=== PATIENT | female | born 1950 | race Caucasian/White ===

== ENCOUNTER 2016-09-18 12:14 | Emergency (ER) | payer BC ==
[~2016-09-18] VITALS: Ht 152.4 cm; Wt 76.0 kg
[~2016-09-18 12:14] MED LIST: INDO50CA PO; ROBA500T PO
[2016-09-18 12:15] VITALS: BP 150/79; PULSE 54; RESP 20; TEMP 97.8; O2SAT 98
[2016-09-18] MEDS ORDERED: TETANUS/DIPHTHERIA TOXOID ADULT 0.5 ML VIAL IM ONE (12:30)
[2016-09-18] MEDS ORDERED: LIDOCAINE HCL 1% 50 ML VIAL INFIL ONE (12:30)
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
--- NOTE | 2016-09-18 13:23 | RADRPT ---
EXAM DATE/TIME: 09/18/2016 12:39 [facility] COMPARISON: No previous studies available for comparison. INDICATIONS : Right hand 4th finger pain, fell MEDICAL HISTORY : None. SURGICAL HISTORY : None. ENCOUNTER: Initial ACUITY: 1 day PAIN SCORE: 10/10 LOCATION: Right Hand FINDINGS: There is no evidence of fracture or dislocation. There are arthritic changes most conspicuously invol ving the third and fifth finger DIP joints. Mineralization is satisfactory. CONCLUSION: No acute bony injury David Gresham MD on September 18, 2016 at 13:20 Board Certified Radiologist. This report was verified electronically.
== END 2016-09-18 13:47 | disposition home or self-care (01) ==
LOC: NEPK 12:14
DX: S61.214A Laceration without foreign body of right ring finger without damage to nail, initial encounter (principal); W23.0XXA Caught, crushed, jammed, or pinched between moving objects, initial encounter; Y93.H2 Activity, gardening and landscaping; Y92.007 Garden or yard of unspecified non-institutional (private) residence as the place of occurrence of the external cause; Z23 Encounter for immunization
CPT/HCPCS: 12002; 73130; 90471; 90714

== ENCOUNTER 2016-09-30 18:45 | Emergency (ER) | payer BC ==
[~2016-09-30] VITALS: Ht 152.4 cm; Wt 70.0 kg
[~2016-09-30 18:45] MED LIST changes: -ROBA500T PO
[2016-09-30 18:46] VITALS: BP 142/77; PULSE 56; RESP 16; TEMP 98.2; O2SAT 98
--- NOTE | 2016-09-30 19:33 | PD ---
HPI Chief Complaint: Wound/Suture/Staple Re-Check Time Seen by Provider: 19:26 Travel History International Travel<30 days: No Contact w/Intl Traveler<30days: No Traveled to known affect area: No History of Present Illness HPI 65-year-old female presents to emergency department for suture removal. The patient was injured on the of last month. Patient had a crush injury to her right ring finger. She had sutures placed. She has no complications. She denies any fever chills. No redness or discharge. PFSH Past Medical History Arthritis: Yes (RA) Cancer: No Cardiovascular Problems: No Diminished Hearing: No Gastrointestinal Disorders: No Musculoskeletal: Yes (ra) Neurologic: No Psychiatric: No Reproductive: No Respiratory: No Thyroid Disease: No Tetanus Vaccination: < 5 Years Past Surgical History Other Surgery: No Social History Alcohol Use: No Tobacco Use: No Substance Use: No Allergies-Medications (Allergen,Severity, Reaction): Coded Allergies: No Known Allergies (Unverified , 09/30/16) Reported Meds & Prescriptions Reported Meds & Active Scripts Active Reported Indomethacin 50 Mg Cap 50 Mg PO BID Take with food, milk, or antacids to decrease stomach adverse effects. Review of Systems Except as stated in HPI: all other systems reviewed are Neg Musculoskeletal: Positive: Limited ROM, Edema, No: Myalgias, Pain Skin: No Rash Neurologic: No: Paresthesia Physical Exam Narrative GENERAL: This is a well-nourished, well-developed patient, in no apparent distress. SKIN: No rashes, ecchymoses or lesions. Warm and dry. HEAD: Atraumatic. Normocephalic. EYES: PERRL, EOMI, no discharge or injection. No scleral icterus. EARS: Clear NOSE: Nasal turbinates appear normal. THROAT: Mucosa pink and moist. Airway patent. NECK: Trachea midline. supple, moves head freely. LUNGS: Clear to auscultation. CV: Regular in rhythm. ABDOMEN: Soft nontender. EXT: No clubbing cyanosis or edema.. Patient has healing laceration to her right ring finger. Sutures are intact. No evidence of infection. She is able to extend fully but has slightly limited flexion due to edema. Patient has intact gross sensation with good Refill. Data Data Last Documented VS Vital Signs Date Time Temp Pulse Resp B/P Pulse Ox O2 Delivery O2 Flow Rate FiO2 09/30/16 18:46 98.2 56 16 142/77 98 MDM Medical Decision Making Medical Screen Exam Complete: Yes Emergency Medical Condition: Yes Medical Record Reviewed: Yes Differential Diagnosis MDM: High Differential diagnoses: Fracture, sprain, strain, dislocation, contusion, neurovascular injury Narrative Course Patient sutures are removed by the nursing staff. Steri-Strips applied. This is suture removal Diagnosis Primary Impression: Encounter for removal of sutures Patient Instructions: General Instructions Additional Instructions: Rest. Elevation. Keep clean and dry. Steri-Strips. Return to the ER for any problems. Med/Other Pt SpecificInfo: Wound Care Disposition: DISCHARGE HOME Condition: Stable Michael Delarosa Sep 30, 2016 19:33
== END 2016-09-30 20:26 | disposition home or self-care (01) ==
LOC: NEPK 18:45
DX: Z48.02 Encounter for removal of sutures (principal)
CPT/HCPCS: 99281